=== PATIENT | female | born 1930 | race Caucasian/White ===

== ENCOUNTER 2017-02-09 06:41 | Inpatient (IN) | payer MEDICARE, BC ==
[~2017-02-09] VITALS: Ht 162.6 cm; Wt 57.2 kg
[2017-02-09] VITALS (643 sets, daily range): BP systolic 123–147; BP diastolic 72–92; PULSE 56–70; TEMP 97.4–98.4; O2SAT 92–100
[~2017-02-09 06:41] MED LIST: 00186-0370-20 IH; ADVIL200 MG PO; AMITRIPTYLINE H50 M1 PO; AMITRIPTYLINE50 MG PO; ASPIRIN 81M81 MG/TA2 PO; ASPIRIN E.C. 8181 MG PO; ATIVAN 0.50.5 MG/TAB PO; ATIVAN0.5 MG PO; CALCIUM 600600 MG PO; CALCIUM1 CAP PO; CALCIUM600 M2 PO; CARDIZEM 30MG T30 MG PO; CARDIZEM LA240 MG PO; CIPRO 250MG TA250 MG PO; CIPRO 500MG TA500 MG PO; CLARITIN 1010 MG/TAB PO; COENZYME Q-101 POW; CORDARONE200 MG/TAB PO; CYANOCOBALAMIN; ENALAPRIL2.5 MG PO; FLAGYL 250250 MG/TAB PO; FLAGYL500 MG PO; IMDUR 60MG60 MG/TAB PO; LIPITOR80 MG PO; LORAZEPAM0.5 MG PO; LOVASTATIN10 MG PO; LOVASTATIN40 MG PO; MACROBID 1100 MG/CAP; MEVACOR40 MG PO; MIRTAZAPINE7.5 MG PO; MOBIC 7.5MG7.5 MG PO; MULTAQ400 MG PO; NITROQUICK0.4 MG SL; NITROSTAT0.4 MG/TAB SL; NORCO 325 MG-51 TAB PO; PERCOCET 325 MG1 TA2 PO; PLAVIX 75MG TAB75 MG PO; PRILOSEC 20MG20 MG PO; PROAIR HFA0.09 MG/AC IH; PROVENTIL0.09 MG/A1 IH; QUESTRAN LITE 41 PKT PO; RT SPIRIVA18 MCG IH; SEPTRA DS 8001 TAB PO; SINGULAIR 110 MG/TAB PO; SYMBICORT1 AE3 IH; SYMBYAX 25 MG-61 CAP PO; TIAZAC120 MG PO; TYLENOL 325MG325 MG PO; TYLENOL EXTRA500 M1 PO; VANCOCIN H250 MG/CAP PO; VASOTEC 5MG5 MG/TAB PO; VIT-GEN1 TAB PO; VITAMIN B12100 MCG PO; VITAMIN D3400 IU PO; ZOLOFT
[2017-02-09 07:14] LABS: BASO # 0.1 (0.0-0.2); BASO % 0.9 % (0.0-2.0); EOS # 0.3 (0.0-0.7); EOS % 5.1 % (0-4.0); GRAN # 2.5 (1.4-6.5); GRAN % 44.3 % (42.2-75.2); HEMATOCRIT 40.9 % (37.0-47.0); HEMOGLOBIN 13.2 g/dl (12.5-16.0); LYMPH # 2.4 (1.2-3.4); LYMPH % 41.8 % (20.0-51.0); MEAN CELL VOLUME 92 fl (80.0-100.0); MEAN CORPUSCULAR HEMOGLOBIN 30 pg (27.0-31.0); MEAN CORPUSCULAR HGB CONC 32 g/dl (33.0-37.0); MEAN PLATELET VOLUME 10.6 fl (7.4-10.4); MONO # 0.4 (0.1-0.6); MONO % 7.7 % (1.7-9.3); PLATELET COUNT 160 K/mm3 (130-400); RED BLOOD COUNT 4.47 M/mm3 (4.10-5.30); REDCELL DISTRIBUTION WIDTH-CV 13.3 % (11.5-14.5); WHITE BLOOD COUNT 5.7 K/mm3 (4.8-10.8)
[2017-02-09 07:25] LABS: PROTHROMBIN TIME 10.9 SECONDS (9.7-12.8)
[2017-02-09 07:27] LABS: ADJUSTED CALCIUM 9.4 mg/dL (8.4-10.2); ALBUMIN 3.8 gm/dL (3.5-5.0); BILIRUBIN,TOTAL 0.8 mg/dL (0.0-1.0); CALCIUM 9.2 mg/dL (8.4-10.2); CREATININE, serum 0.76 mg/dL (0.52-1.25); POTASSIUM 3.4 mmol/L (3.4-5.0); TOTAL PROTEIN 6.5 gm/dL (6.4-8.2)
[2017-02-09 07:28] LABS: PARTIAL THROMBOPLASTIN TIME 30.2 SECONDS (26.0-37.0)
[2017-02-09 08:28] LABS: PH 7 (5-8); SQUAMOUS EPITHELIAL 0-2 /hpf; URINE APPEARANCE Clear; URINE BACTERIA None Seen /hpf; URINE BILIRUBIN Negative (NEGATIVE); URINE BLOOD 1+ (NEGATIVE); URINE COLOR Straw; URINE GLUCOSE Negative (NEGATIVE); URINE KETONE Negative (NEGATIVE); URINE RBC 0-2 /hpf; URINE UROBILINOGEN Negative (NEGATIVE); URINE WBC 0-2 /hpf
[2017-02-09] MEDS ORDERED: ASPIRIN 81M81 MG/TA2 PO (10:26)
[2017-02-10] VITALS (321 sets, daily range): BP systolic 120–152; BP diastolic 65–84; PULSE 50–63; TEMP 98–98.4; O2SAT 91–99
[2017-02-10] MEDS ORDERED: PACERONE400 MG PO (09:09)
[2017-02-10] MEDS ORDERED: ELIQUIS 5MG PO (09:10)
[2017-02-10] MEDS ORDERED: CORDARONE200 MG/TAB PO (11:12)
[2017-02-10] MEDS ORDERED: MEVACOR40 MG PO (11:13)
[2017-02-10] MEDS ORDERED: 00186-0372-20 IH (11:14)
[2017-02-10] MEDS ORDERED: ATIVAN 0.50.5 MG/TAB PO (11:15)
== END 2017-02-10 13:10 | disposition home or self-care (01) | DRG 310 ==
LOC: COL.ER 06:41 → ICU 08:55
PROVIDERS: Emergency Medicine
DX: I48.91 Unspecified atrial fibrillation (principal); I25.10 Atherosclerotic heart disease of native coronary artery without angina pectoris; I10 Essential (primary) hypertension; F41.9 Anxiety disorder, unspecified; J45.909 Unspecified asthma, uncomplicated
CPT/HCPCS: J0282; J7040; J7050; J7060

== ENCOUNTER → 2017-10-21 | Outpatient (REF) ==
[~2017-10-21] MED LIST changes: +00186-0372-20 IH; +ALMACONE 360 M360 ML PO; +BENADRYL25 M2 PO; +CAPSAICIN0.025% TP; +CARDIZEM CD 24240 MG PO; -CARDIZEM LA240 MG PO; +CELEBREX 200MG200 MG PO; +ELIQUIS 5MG PO; +FLONASE NASAL S16 GM NS; +LANOXIN 0.120.125 MG PO; +MUCINEX 60600 MG/TA1 PO; +PACERONE400 MG PO
[2017-10-21 10:11] LABS: MEAN CELL VOLUME 91 fl (80.0-100.0); MEAN CORPUSCULAR HGB CONC 33 g/dl (33.0-37.0); MEAN PLATELET VOLUME 10.3 fl (7.4-10.4); PLATELET COUNT 186 K/mm3 (130-400); RED BLOOD COUNT 3.98 M/mm3 (4.10-5.30); WHITE BLOOD COUNT 9.6 K/mm3 (4.8-10.8)
[2017-10-21 10:14] LABS: ADD PATHOLOGY DIFF REVIEW NO; HEMOGLOBIN 11.7 g/dl (12.5-16.0); MEAN CORPUSCULAR HEMOGLOBIN 29 pg (27.0-31.0)
[2017-10-21 10:19] LABS: CALCIUM 7.8 mg/dL (8.4-10.2); CREATININE, serum 0.53 mg/dL (0.52-1.25); MAGNESIUM 1.7 mg/dL (1.6-2.3); POTASSIUM 3.5 mmol/L (3.4-5.0)
[2017-10-21 12:01] LABS: BAND 18 % (0-10); EOSINOPHIL 3 % (0-4); LYMPHOCYTE 11 % (20.0-51.0); NEUTROPHILS 66 % (42.0-75.2); PLATELET ESTIMATE NORMAL (NORMAL); TOTAL CELLS COUNTED 100
== END ==
LOC: ZLAB.STJ 09:55
PROVIDERS: Internal Medicine
DX: I25.10 Atherosclerotic heart disease of native coronary artery without angina pectoris (principal); M62.81 Muscle weakness (generalized)

== ENCOUNTER 2017-11-28 09:09 | Inpatient (IN) | payer MEDICARE, BC ==
[~2017-11-28] VITALS: Ht 162.6 cm; Wt 54.4 kg
[2017-11-28 09:55] LABS: MEAN CELL VOLUME 89 fl (80.0-100.0); MEAN CORPUSCULAR HGB CONC 33 g/dl (33.0-37.0); MEAN PLATELET VOLUME 8.9 fl (7.4-10.4); PLATELET COUNT 596 K/mm3 (130-400); RED BLOOD COUNT 3.71 M/mm3 (4.10-5.30); REDCELL DISTRIBUTION WIDTH-CV 14.6 % (11.5-14.5)
[2017-11-28 09:58] LABS: HEMATOCRIT 32.9 % (37.0-47.0); HEMOGLOBIN 10.8 g/dl (12.5-16.0); MEAN CORPUSCULAR HEMOGLOBIN 29 pg (27.0-31.0)
[2017-11-28 10:05] LABS: INR 1.3 (0.8-3.0); PROTHROMBIN TIME 14.9 SECONDS (9.7-12.8)
[2017-11-28 10:07] LABS: ALBUMIN 3.1 gm/dL (3.5-5.0); BILIRUBIN,TOTAL 0.9 mg/dL (0.0-1.0); CALCIUM 8.4 mg/dL (8.4-10.2); CREATININE, serum 0.62 mg/dL (0.52-1.25); PARTIAL THROMBOPLASTIN TIME 30.3 SECONDS (26.0-37.0); POTASSIUM 3.5 mmol/L (3.4-5.0); TOTAL PROTEIN 6.1 gm/dL (6.4-8.2)
[2017-11-28 10:14] LABS: COLLECTION METHOD CATHETER
[2017-11-28 10:18] LABS: C-REACTIVE PROTEIN 23.9 mg/dL (0.0-0.9)
[2017-11-28 10:23] LABS: MUCOUS Present /lpf; PH 5 (5-8); SQUAMOUS EPITHELIAL 0-2 /hpf; URINE APPEARANCE Clear; URINE BACTERIA None Seen /hpf; URINE BILIRUBIN Negative (NEGATIVE); URINE BLOOD Negative (NEGATIVE); URINE COLOR Yellow; URINE GLUCOSE Negative (NEGATIVE); URINE KETONE 1+ (NEGATIVE); URINE LEUKOCYTE ESTERASE Negative (NEGATIVE); URINE NITRATE Negative (NEGATIVE); URINE PROTEIN(semi-quant) 1+ (NEGATIVE); URINE RBC None Seen /hpf; URINE UROBILINOGEN Negative (NEGATIVE)
[2017-11-28 10:27] LABS: ERYTHROCYTE SEDIMENTATION RATE 71 mm/hr (0-30)
[2017-11-28 10:35] LABS: INFLUENZA A NEGATIVE; INFLUENZA B NEGATIVE
[2017-11-28 10:42] LABS: BAND 10 % (0-10); HYPOCHROMIA 1+; LYMPHOCYTE 4 % (20.0-51.0); METAMYELOCYTE 1 % (0-0); NEUTROPHILS 80 % (42.0-75.2); PLATELET ESTIMATE INCREASED (NORMAL)
[2017-11-28] MEDS ORDERED: NORCO 325 MG-51 TAB PO (10:47)
[2017-11-28] MEDS ORDERED: TYLENOL 8 HR PO (10:48)
[2017-11-28] MEDS ORDERED: PREDNISONE10 MG PO (10:50)
[2017-11-28 11:23] LABS: LIPASE 58 U/L (23-300)
[2017-11-28 11:49] LABS: TROPONIN-I < 0.012 ng/mL (0.000-0.034)
[2017-11-28 15:08] VITALS: BP 112/62; PULSE 46; PULSE 86; TEMP 98.2
[2017-11-28 15:33] LABS: CALCIUM 7.7 mg/dL (8.4-10.2); CREATININE, serum 0.52 mg/dL (0.52-1.25); POTASSIUM 3.7 mmol/L (3.4-5.0)
[2017-11-28 20:19] VITALS: BP 141/67; PULSE 88; TEMP 99.2
[2017-11-29] VITALS (624 sets, daily range): BP systolic 102–175; BP diastolic 48–85; PULSE 65–97; TEMP 97.8–99.6; O2SAT 81–100
[2017-11-29 07:21] LABS: ALBUMIN 2.7 gm/dL (3.5-5.0); BILIRUBIN UNCONJUGATED 0.4 mg/dL (0.0-1.1); BILIRUBIN,DIRECT 0.2 mg/dL (0.0-0.4); BILIRUBIN,TOTAL 0.6 mg/dL (0.0-1.0); TOTAL PROTEIN 5.6 gm/dL (6.4-8.2)
[2017-11-29 20:09] LABS: CARCINOEMBRYONIC ANTIGEN 2.5 ng/mL (0.0-5.0)
[2017-11-30] VITALS (1358 sets, daily range): BP systolic 98–137; BP diastolic 49–69; PULSE 59–78; TEMP 97.6–98.6; O2SAT 71–100
[2017-11-30 06:01] LABS: MEAN CELL VOLUME 89 fl (80.0-100.0); MEAN CORPUSCULAR HGB CONC 32 g/dl (33.0-37.0); MEAN PLATELET VOLUME 8.9 fl (7.4-10.4); RED BLOOD COUNT 2.93 M/mm3 (4.10-5.30); REDCELL DISTRIBUTION WIDTH-CV 14.8 % (11.5-14.5)
[2017-11-30 06:11] LABS: ALBUMIN 2.1 gm/dL (3.5-5.0); BILIRUBIN,TOTAL 0.1 mg/dL (0.0-1.0); CALCIUM 6.9 mg/dL (8.4-10.2); CREATININE, serum 0.65 mg/dL (0.52-1.25); POTASSIUM 3.7 mmol/L (3.4-5.0); TOTAL PROTEIN 4.7 gm/dL (6.4-8.2)
[2017-11-30 06:14] LABS: HEMATOCRIT 26.2 % (37.0-47.0); HEMOGLOBIN 8.5 g/dl (12.5-16.0); MEAN CORPUSCULAR HEMOGLOBIN 29 pg (27.0-31.0)
[2017-11-30 06:15] LABS: PLATELET COUNT 355 K/mm3 (130-400)
[2017-11-30 06:22] LABS: EOSINOPHIL 1 % (0-4); LYMPHOCYTE 2 % (20.0-51.0); NEUTROPHILS 94 % (42.0-75.2)
[2017-11-30 06:24] LABS: HYPOCHROMIA 2+
[2017-11-30 06:25] LABS: ANISOCYTOSIS 1+; POIKILOCYTOSIS 1+; POLYCHROMASIA 1+; TARGET CELLS 1+
[2017-12-01] VITALS (678 sets, daily range): BP systolic 135–165; BP diastolic 57–80; PULSE 69–76; TEMP 98–99.5; O2SAT 81–100
[2017-12-01 05:42] LABS: BASO % 0.2 % (0.0-2.0); EOS # 0.1 (0.0-0.7); EOS % 0.2 % (0-4.0); GRAN # 18.9 (1.4-6.5); GRAN % 87.2 % (42.2-75.2); LYMPH # 1.3 (1.2-3.4); MEAN CELL VOLUME 90 fl (80.0-100.0); MEAN CORPUSCULAR HGB CONC 32 g/dl (33.0-37.0); MONO # 1.2 (0.1-0.6); MONO % 5.6 % (1.7-9.3); PLATELET COUNT 392 K/mm3 (130-400); RED BLOOD COUNT 3.14 M/mm3 (4.10-5.30); REDCELL DISTRIBUTION WIDTH-CV 14.8 % (11.5-14.5)
[2017-12-01 05:47] LABS: HEMATOCRIT 28.1 % (37.0-47.0); MEAN CORPUSCULAR HEMOGLOBIN 29 pg (27.0-31.0)
[2017-12-01 05:52] LABS: ALBUMIN 2.1 gm/dL (3.5-5.0); BILIRUBIN,TOTAL 0.3 mg/dL (0.0-1.0); CALCIUM 7.1 mg/dL (8.4-10.2); CREATININE, serum 0.56 mg/dL (0.52-1.25); POTASSIUM 3.4 mmol/L (3.4-5.0); TOTAL PROTEIN 4.7 gm/dL (6.4-8.2)
[2017-12-02] VITALS (7 sets, daily range): BP systolic 148–177; BP diastolic 68–85; PULSE 62–84; TEMP 97.9–99.1
[2017-12-02 06:37] LABS: BASO % 0.1 % (0.0-2.0); EOS # 0.1 (0.0-0.7); EOS % 0.3 % (0-4.0); GRAN # 13.3 (1.4-6.5); GRAN % 83.8 % (42.2-75.2); LYMPH # 1.4 (1.2-3.4); LYMPH % 9.1 % (20.0-51.0); MEAN CELL VOLUME 89 fl (80.0-100.0); MEAN CORPUSCULAR HGB CONC 32 g/dl (33.0-37.0); MEAN PLATELET VOLUME 9.1 fl (7.4-10.4); MONO # 0.9 (0.1-0.6); MONO % 5.4 % (1.7-9.3); PLATELET COUNT 417 K/mm3 (130-400); RED BLOOD COUNT 3.35 M/mm3 (4.10-5.30); REDCELL DISTRIBUTION WIDTH-CV 14.8 % (11.5-14.5)
[2017-12-02 06:53] LABS: ALBUMIN 2.4 gm/dL (3.5-5.0); BILIRUBIN,TOTAL 0.5 mg/dL (0.0-1.0); CALCIUM 7.6 mg/dL (8.4-10.2); CREATININE, serum 0.51 mg/dL (0.52-1.25); POTASSIUM 3.5 mmol/L (3.4-5.0); TOTAL PROTEIN 5.2 gm/dL (6.4-8.2)
[2017-12-02 07:01] LABS: HEMATOCRIT 29.7 % (37.0-47.0); HEMOGLOBIN 9.4 g/dl (12.5-16.0); MEAN CORPUSCULAR HEMOGLOBIN 28 pg (27.0-31.0)
[2017-12-03 03:33] VITALS: BP 154/75; PULSE 66; TEMP 97.3
[2017-12-03 07:48] LABS: MEAN CELL VOLUME 90 fl (80.0-100.0); MEAN CORPUSCULAR HGB CONC 31 g/dl (33.0-37.0); MEAN PLATELET VOLUME 9.1 fl (7.4-10.4); PLATELET COUNT 399 K/mm3 (130-400); RED BLOOD COUNT 3.08 M/mm3 (4.10-5.30); REDCELL DISTRIBUTION WIDTH-CV 14.9 % (11.5-14.5)
[2017-12-03 07:59] LABS: ALBUMIN 2.4 gm/dL (3.5-5.0); BILIRUBIN,TOTAL 0.2 mg/dL (0.0-1.0); CALCIUM 7.5 mg/dL (8.4-10.2); CREATININE, serum 0.48 mg/dL (0.52-1.25); POTASSIUM 3.5 mmol/L (3.4-5.0); TOTAL PROTEIN 4.8 gm/dL (6.4-8.2)
[2017-12-03 08:01] LABS: HEMATOCRIT 27.7 % (37.0-47.0); HEMOGLOBIN 8.7 g/dl (12.5-16.0); MEAN CORPUSCULAR HEMOGLOBIN 28 pg (27.0-31.0)
[2017-12-03 08:08] VITALS: BP 168/75; PULSE 68; TEMP 98.6
[2017-12-03 09:29] LABS: BAND 1 % (0-10); EOSINOPHIL 1 % (0-4); LYMPHOCYTE 23 % (20.0-51.0); METAMYELOCYTE 1 % (0-0); NEUTROPHILS 71 % (42.0-75.2)
[2017-12-03 09:30] LABS: HYPOCHROMIA 2+; PLATELET ESTIMATE INCREASED (NORMAL)
[2017-12-03 12:02] VITALS: BP 138/78; PULSE 77; TEMP 98.6
[2017-12-03 16:00] VITALS: BP 137/65; PULSE 76; TEMP 98.6
[2017-12-03 19:59] VITALS: BP 148/82; PULSE 74; TEMP 99.9
[2017-12-04 00:07] VITALS: BP 154/69; PULSE 76; TEMP 97.6
[2017-12-04 03:43] VITALS: BP 174/79; PULSE 77; TEMP 97.6
[2017-12-04 08:56] VITALS: BP 157/73; PULSE 73; TEMP 98.6
[2017-12-04 09:01] LABS: MEAN CELL VOLUME 90 fl (80.0-100.0); MEAN CORPUSCULAR HGB CONC 32 g/dl (33.0-37.0); MEAN PLATELET VOLUME 9.1 fl (7.4-10.4); PLATELET COUNT 394 K/mm3 (130-400); RED BLOOD COUNT 3.22 M/mm3 (4.10-5.30); REDCELL DISTRIBUTION WIDTH-CV 14.7 % (11.5-14.5)
[2017-12-04 09:05] LABS: HEMATOCRIT 28.9 % (37.0-47.0); HEMOGLOBIN 9.3 g/dl (12.5-16.0); MEAN CORPUSCULAR HEMOGLOBIN 29 pg (27.0-31.0)
[2017-12-04 09:10] LABS: CALCIUM 7.7 mg/dL (8.4-10.2); CREATININE, serum 0.45 mg/dL (0.52-1.25); POTASSIUM 3.3 mmol/L (3.4-5.0)
[2017-12-04 09:57] LABS: BAND 1 % (0-10); LYMPHOCYTE 14 % (20.0-51.0); NEUTROPHILS 76 % (42.0-75.2); PLATELET ESTIMATE NORMAL (NORMAL)
[2017-12-04 09:58] LABS: HYPOCHROMIA 1+
[2017-12-04 11:36] VITALS: BP 150/67; PULSE 84; TEMP 99.2
[2017-12-04 12:42] LABS: INFLUENZA A NEGATIVE; INFLUENZA B NEGATIVE
[2017-12-04 16:33] VITALS: BP 155/72; PULSE 74; TEMP 98.8
[2017-12-04 20:25] VITALS: BP 174/67; PULSE 80; TEMP 98
[2017-12-05 00:16] VITALS: BP 149/76; PULSE 73; TEMP 97.8
[2017-12-05 03:57] VITALS: BP 163/76; PULSE 77; TEMP 98.3
[2017-12-05 07:00] LABS: MEAN CELL VOLUME 90 fl (80.0-100.0); MEAN CORPUSCULAR HGB CONC 32 g/dl (33.0-37.0); MEAN PLATELET VOLUME 10.7 fl (7.4-10.4); PLATELET COUNT 413 K/mm3 (130-400); RED BLOOD COUNT 3.35 M/mm3 (4.10-5.30); REDCELL DISTRIBUTION WIDTH-CV 15.4 % (11.5-14.5)
[2017-12-05 07:12] LABS: HEMATOCRIT 30.1 % (37.0-47.0); HEMOGLOBIN 9.7 g/dl (12.5-16.0); MEAN CORPUSCULAR HEMOGLOBIN 29 pg (27.0-31.0)
[2017-12-05 07:17] LABS: CALCIUM 8.1 mg/dL (8.4-10.2); CREATININE, serum 0.47 mg/dL (0.52-1.25); POTASSIUM 3.5 mmol/L (3.4-5.0)
[2017-12-05 07:44] VITALS: BP 165/72; PULSE 82; TEMP 98.5
[2017-12-05 08:12] LABS: BAND 1 % (0-10); HYPOCHROMIA 3+; LYMPHOCYTE 12 % (20.0-51.0); METAMYELOCYTE 1 % (0-0); NEUTROPHILS 84 % (42.0-75.2); PLATELET ESTIMATE INCREASED (NORMAL)
[2017-12-05 11:47] VITALS: BP 131/80; PULSE 89; TEMP 98.1
[2017-12-05] MEDS ORDERED: ROCEPHIN 2GM VIAL21 IJ (13:23)
[2017-12-05] MEDS ORDERED: FLAGYL 500500 MG/100 IV (13:24)
[2017-12-05] MEDS ORDERED: SORE THROAT LOZ1 LO1 MM (13:26)
[2017-12-05] MEDS ORDERED: ASPIRIN E.C. 8181 MG PO (13:44)
== END 2017-12-05 14:20 | DRG 871 ==
LOC: COL.ER 09:09 → MEDICAL 12:31 → ICU 11-29 11:00 → MEDICAL 12-01 16:33
PROVIDERS: Emergency Medicine; Family Medicine; Internal Medicine; Internal Medicine Gastroenterology; Nurse Practitioner Family
PROC: 0F9130Z Drainage of Right Lobe Liver with Drainage Device, Percutaneous Approach (ICD-10-PCS; principal; 2017-11-29)
PROC: 0F913ZX Drainage of Right Lobe Liver, Percutaneous Approach, Diagnostic (ICD-10-PCS; 2017-11-29)
DX: A41.51 Sepsis due to Escherichia coli [E. coli] (principal); K75.0 Abscess of liver; J96.01 Acute respiratory failure with hypoxia; Z66 Do not resuscitate; B96.20 Unspecified Escherichia coli [E. coli] as the cause of diseases classified elsewhere; I48.91 Unspecified atrial fibrillation; I10 Essential (primary) hypertension; Z95.0 Presence of cardiac pacemaker; J45.909 Unspecified asthma, uncomplicated; Z95.5 Presence of coronary angioplasty implant and graft; J02.8 Acute pharyngitis due to other specified organisms; K21.9 Gastro-esophageal reflux disease without esophagitis
CPT/HCPCS: OP; 99232-AI; 99233-AI; 99239; A4314; C1751; G0378; J0692; J0696; J0744; J1644; J1956; J2250; J2405; J3010; J7030; Q9967

== ENCOUNTER → 2017-12-20 | Outpatient (CLI) | payer MEDICARE, BC ==
[~2017-12-20] MED LIST changes: +FLAGYL 500500 MG/100 IV; +PREDNISONE10 MG PO; +ROCEPHIN 2GM VIAL21 IJ; +SORE THROAT LOZ1 LO1 MM; +TYLENOL 8 HR PO
== END ==
LOC: COL.RAD 06:55
DX: K75.0 Abscess of liver (principal); K80.20 Calculus of gallbladder without cholecystitis without obstruction; K83.8 Other specified diseases of biliary tract; N28.9 Disorder of kidney and ureter, unspecified